=== PATIENT | male | born 1985 | race Caucasian/White ===

== ENCOUNTER 2024-05-03 13:36 | Emergency (ER) | payer MEDICAID ==
[~2024-05-03] VITALS: Ht 177.8 cm; Wt 105.0 kg
[2024-05-03 13:39] VITALS: O2SAT 98
[2024-05-03] MEDS: LEVETIRACETAM 1000MG PREMIX 100 ML IV ONE (14:24)
[2024-05-03 14:46] LABS: BASOPHILS % 0.8 % (0.0-2.0); HEMOGLOBIN. 14.3 g/dL (14.0-18.0); LYMPHOCYTES % 21.2 % (20.0-50.0); MEAN CORPUSCULAR HEMOGLOBIN 29.3 pg (28.0-32.0); MEAN CORPUSCULAR HGB CONC 33.2 g/dL (31.0-37.0); MEAN CORPUSCULAR VOLUME 88.2 fL (80.0-94.0); MEAN PLATELET VOLUME 9.6 fl (7.4-10.4); MONOCYTES % 6.8 % (2.0-8.0); NEUTROPHILS % 69.2 % (40.0-76.0); PLATELET 286 x1000/uL (130-400); RED BLOOD CELL COUNT 4.87 mill/uL (4.7-6.1); RED CELL DISTRIBUTION WIDTH 14.5 % (11.6-14.6); WHITE BLOOD COUNT 8.2 x1000/uL (4.5-11.0)
[2024-05-03 14:50] LABS: CHLORIDE 106 mEq/L (98-107); POTASSIUM 3.9 mEq/L (3.5-5.1); SODIUM 143 mEq/L (136-145)
[2024-05-03 14:51] LABS: CARBON DIOXIDE 26 mEq/L (21-32)
[2024-05-03 14:52] LABS: CALCIUM 9.4 mg/dL (8.7-10.4)
[2024-05-03 14:56] LABS: CREATININE 1.1 mg/dL (0.6-1.3); GLUCOSE 111 mg/dL (70-105); UREA NITROGEN BLOOD 15 mg/dL (9-23)
[2024-05-03 15:04] LABS: ETHANOL BLOOD < 10 mg/dL (<10)
[2024-05-03 18:45] VITALS: BP 115/62; PULSE 89; RESP 12; TEMP 36.89184; O2SAT 100
[2024-05-09] MEDS ORDERED: LEVE10006 PO (16:49)
[2024-05-09] MEDS ORDERED: PHEN100C12 PO (16:49)
[2024-05-11] MEDS ORDERED: LEVE10006 PO (08:48)
[2024-05-11] MEDS ORDERED: PHEN100C12 PO (08:48)
== END 2024-05-03 18:48 | disposition home or self-care (01) ==
LOC: ER 13:36
DX: G40.909 Epilepsy, unspecified, not intractable, without status epilepticus (principal); Z87.820 Personal history of traumatic brain injury
CPT/HCPCS: 80048; 80320; 85025; 36415; 93005; 96365; 99285; J1953; G0480

== ENCOUNTER 2024-07-30 16:38 | Emergency (ER) | payer MEDICAID ==
[~2024-07-30] VITALS: Ht 177.8 cm; Wt 80.0 kg
[~2024-07-30 16:38] MED LIST: LEVE10006 PO; PHEN100C12 PO
[2024-07-30 16:41] VITALS: O2SAT 100
[2024-07-30 17:06] VITALS: TEMP 36.7
[2024-07-30] MEDS ORDERED: PHENYTOIN SODIUM EXTENDED 100MG CAPSULE PO ONE (19:15)
[2024-07-30] MEDS ORDERED: PHEN100C4 MT (19:26)
[2024-07-30] MEDS ORDERED: PHENYTOIN SODIUM EXTENDED 100MG CAPSULE PO NR (19:30)
[2024-07-30] MEDS: PHENYTOIN 100 MG/4 ML UDC PO NR (20:10)
[2024-07-30 20:19] VITALS: BP 113/70; PULSE 97; RESP 13; O2SAT 99
== END 2024-07-30 20:19 | disposition home or self-care (01) ==
LOC: ER 16:38
DX: G40.909 Epilepsy, unspecified, not intractable, without status epilepticus (principal); F12.90 Cannabis use, unspecified, uncomplicated; Z79.899 Other long term (current) drug therapy; Z87.820 Personal history of traumatic brain injury
CPT/HCPCS: 99283

== ENCOUNTER 2025-03-01 21:09 | Inpatient (IN) | payer MEDICAID ==
[~2025-03-01] VITALS: Ht 177.8 cm; Wt 109.3 kg
[~2025-03-01 21:09] MED LIST changes: +LEVE100023 PO; -LEVE10006 PO; +PHEN100C4 MT
[2025-03-01 21:19] VITALS: O2SAT 99
[2025-03-01] MEDS ORDERED: LEVETIRACETAM 1,000MG in NACL 100ML PREMIX IV SCH (21:30)
[2025-03-01] MEDS: LEVETIRACETAM 1000MG PREMIX 100 ML IV NR (22:15)
[2025-03-01] MEDS: LORAZEPAM 2MG/ML UD SYRINGE IV NR (22:20)
[2025-03-01 23:16] LABS: HEMATOCRIT. 43.0 % (42.0-52.0); HEMOGLOBIN. 14.0 g/dL (14.0-18.0); MEAN PLATELET VOLUME 9.8 fl (7.4-10.4); PLATELET 190 x1000/uL (130-400); RED BLOOD CELL COUNT 4.92 mill/uL (4.7-6.1); RED CELL DISTRIBUTION WIDTH 14.2 % (11.6-14.6)
[2025-03-01 23:28] LABS: CREATININE 1.0 mg/dL (0.6-1.3); UREA NITROGEN BLOOD 10 mg/dL (9-23)
[2025-03-01 23:52] LABS: PHENYTOIN < 2.0 ug/mL (10-20)
[2025-03-02] MEDS: PHENYTOIN SODIUM 100MG/2ML VIAL IV ONE (00:11)
[2025-03-02] MEDS ORDERED: DOCUSATE SODIUM 100MG CAPSULE PO PRN (02:15)
[2025-03-02] MEDS ORDERED: ONDANSETRON HCL 4MG/2ML INJ IV PRN (02:15)
[2025-03-02] MEDS ORDERED: LORAZEPAM 2MG/ML UD SYRINGE IV PRN (02:15)
[2025-03-02] MEDS ORDERED: IPRATROPIUM/ALBUTEROL 0.5-3(2.5)MG/3ML NEB HHN PRN (02:15)
[2025-03-02 03:03] VITALS: BP 122/78; PULSE 109; RESP 18; TEMP 36.4736
[2025-03-02 04:00] VITALS: BP 121/74; PULSE 108; RESP 18; TEMP 36.4; O2SAT 97
[2025-03-02] MEDS: LACTATED RINGERS 1,000 ML IV SCH (04:38)
[2025-03-02 05:23] LABS: PHOSPHORUS 3.7 mg/dL (2.5-4.9)
[2025-03-02] MEDS: PHENYTOIN SODIUM 100MG/2ML VIAL IV SCH (05:41)
[2025-03-02 06:53] LABS: EOSINOPHILS % MANUAL 1.0 % (0.0-5.0); LYMPHOCYTES % MANUAL 8.0 % (20.0-50.0); MONOCYTES % MANUAL 9.0 % (2.0-8.0); NEUTROPHILS % MANUAL 82.0 % (45.0-75.0)
[2025-03-02 06:54] LABS: PLATELET ESTIMATE NORMAL
[2025-03-02 08:00] VITALS: BP 101/42; PULSE 88; RESP 20; TEMP 36.6; O2SAT 95
[2025-03-02] MEDS: LEVETIRACETAM 1000MG PREMIX 100 ML IV SCH (08:26)
[2025-03-02 12:00] VITALS: BP 103/54; PULSE 88; RESP 20; TEMP 36.7; O2SAT 100
[2025-03-02 16:00] VITALS: BP 107/64; PULSE 84; RESP 18; TEMP 36.6; O2SAT 100
[2025-03-02 20:00] VITALS: BP 113/62; PULSE 83; RESP 20; TEMP 36.5; O2SAT 100
[2025-03-03] VITALS: BP 121/68; PULSE 77; RESP 20; TEMP 36.4; O2SAT 99
[2025-03-03 00:21] LABS: CLARITY URINE CLEAR (CLEAR); COLOR URINE YELLOW (YELLOW); GLUCOSE URINE NEGATIVE (NEGATIVE); KETONES URINE 3+ (NEGATIVE); LEUKOCYTE ESTERASE URINE NEGATIVE (NEGATIVE); NITRITE URINE NEGATIVE (NEGATIVE); OCCULT BLOOD URINE NEGATIVE (NEGATIVE); PH URINE 6.0 (4.5-8.0); PROTEIN URINE NEGATIVE (NEGATIVE); SPECIFIC GRAVITY URINE 1.017 (1.005-1.030); UROBILINOGEN URINE 1.0 E.U./dL (0.2-1.0)
[2025-03-03 00:33] LABS: *AMPHETAMINES SCREEN URINE PRESUMPTIVE POSITIVE (NEGATIVE); *BARBITURATES SCREEN URINE NEGATIVE (NEGATIVE); *BENZODIAZEPINES SCREEN URINE NEGATIVE (NEGATIVE); *COCAINE SCREEN URINE NEGATIVE (NEGATIVE)
[2025-03-03 00:34] LABS: CANNABINOID URINE SCREEN PRESUMPTIVE POSITIVE (NEGATIVE); ECSTASY MDMA SCREEN URINE NEGATIVE (NEGATIVE); METHADONE URINE SCREEN NEGATIVE (NEGATIVE); OPIATES URINE SCREEN NEGATIVE (NEGATIVE); PHENCYCLIDINE URINE SCREEN NEGATIVE (NEGATIVE)
[2025-03-03 04:00] VITALS: BP 101/62; PULSE 88; RESP 20; TEMP 36.9; O2SAT 96
[2025-03-03 07:21] LABS: BASOPHILS % 0.2 % (0.0-2.0); EOSINOPHILS % 3.2 % (0.0-5.0); HEMATOCRIT. 40.1 % (42.0-52.0); HEMOGLOBIN. 13.5 g/dL (14.0-18.0); LYMPHOCYTES % 20.2 % (20.0-50.0); MEAN PLATELET VOLUME 10.5 fl (7.4-10.4); MONOCYTES % 6.8 % (2.0-8.0); NEUTROPHILS % 69.6 % (40.0-76.0); PLATELET 201 x1000/uL (130-400); RED BLOOD CELL COUNT 4.67 mill/uL (4.7-6.1); RED CELL DISTRIBUTION WIDTH 14.1 % (11.6-14.6)
[2025-03-03 07:40] LABS: CREATININE 0.7 mg/dL (0.6-1.3); UREA NITROGEN BLOOD 5 mg/dL (9-23)
[2025-03-03 08:00] VITALS: BP 101/54; PULSE 88; RESP 20; TEMP 36.7; O2SAT 98
[2025-03-03] MEDS ORDERED: POTASSIUM CHLORIDE 40 MEQ in DEXT 5% WATER 230 ML IV ONE (09:00)
[2025-03-03] MEDS: KCL 20MEQ/100ML X 2 FOR TOTAL KCL 40MEQ/200ML IV SCH (10:51)
[2025-03-03 12:00] VITALS: BP 108/63; PULSE 83; RESP 18; TEMP 36.8; O2SAT 96
[2025-03-03 16:00] VITALS: BP 104/48; PULSE 85; RESP 17; TEMP 36.7; O2SAT 100
[2025-03-03 20:00] VITALS: BP 100/49; PULSE 78; RESP 20; TEMP 36.9; O2SAT 98
[2025-03-04] VITALS: BP 106/48; PULSE 84; RESP 18; TEMP 36.6; O2SAT 98
[2025-03-04 04:00] VITALS: BP 99/48; PULSE 92; RESP 20; TEMP 36.3; O2SAT 96
[2025-03-04 07:02] LABS: CREATININE 0.9 mg/dL (0.6-1.3); UREA NITROGEN BLOOD 7 mg/dL (9-23)
[2025-03-04 08:00] VITALS: BP 101/54; PULSE 71; RESP 18; TEMP 36.7; O2SAT 99
[2025-03-04] MEDS ORDERED: PHEN100C12 PO (11:51)
[2025-03-04] MEDS ORDERED: LEVE100023 PO (11:51)
[2025-03-04 12:43] VITALS: BP 101/54; PULSE 71; RESP 18; TEMP 98.1
[2025-03-04] MEDS ORDERED: PHENYTOIN SODIUM EXTENDED 100MG CAPSULE PO SCH (14:00)
[2025-03-04] MEDS ORDERED: LEVETIRACETAM 1000MG PREMIX 100 ML IV SCH (21:00)
[2025-03-04] MEDS ORDERED: LEVETIRACETAM 1,000MG in NACL 100ML PREMIX IV SCH (21:00)
== END 2025-03-04 14:26 | disposition home or self-care (01) | DRG 53 ==
LOC: ER 21:09 → 7WST 03-02 00:17 → EDBEDREQ 03-02 00:29 → EDBEDREQDT 03-02 00:29 → EDBEDREQTM 03-02 00:29 → CANRESERV 03-02 01:05 → ENRESERV 03-02 01:05
PROVIDERS: ADMIT Internal Medicine; ATTEND Internal Medicine
DX: G40.901 Epilepsy, unspecified, not intractable, with status epilepticus (principal); G93.89 Other specified disorders of brain; J96.10 Chronic respiratory failure, unspecified whether with hypoxia or hypercapnia; R00.0 Tachycardia, unspecified; R53.1 Weakness; Z87.820 Personal history of traumatic brain injury
CPT/HCPCS: 36415; 71045; 80048; 80185; 80305; 80320; 81003; 82542; 82550; 83605; 83735; 84100; 84145; 85025; 93005; 96365; 96375; 99291; J1165; J1953; J2060; J3480; J7120; G0480